=== PATIENT | female | born 1970 | race Caucasian/White ===

== ENCOUNTER 2024-05-15 11:41 | Outpatient (CLI) | payer OTHER, SELFPAY ==
[2024-05-15 12:14] LABS: Hematocrit 42.3 % (37.0-47.0); Hemoglobin 13.5 g/dL (12.0-15.0)
--- OUTSIDE RECORDS SUMMARY | 2024-05-15 13:23 | XMS_ITS | Encounter Summary ---
Author Organization [facility] Address [facility] [place] [address] Care Team Providers Care Foundation Assistant Name Role Phone Kristen Xiong NP Primary Care Provider [phone] Encounter Details Date Type Department Care Team (Late Contact Info) Description 02/18/2022 Orders Only [facility] Medical [facility] Family Medicine [address] [place] [phone] Kristen Xiong NP [address] [place] [address] Social History Tobacco Use Types Packs/Day Years Used Date Smoking Tobacco: Never Smokeless Tobacco: Never Alcohol Use Standard Drinks/Week Comments No 0 (1 standard drink = 0.6 oz pur e alcohol) rarely Comments No Sex and Gender Information Value Date Recorded Sex Assigned at Not on file Legal Sex Female 9:26 PM CDT Gender Identity Female 01/14/2021 8:12 AM SOCIAL SECRETARY Sexual Orientation Not on file documented as of this encounter Plan of Treatment Upcoming Encounters Date Type Department Care Team (Late Contact Info) Description 06/06/2024 3:30 PM CDT Appointment [facility] Breast Center [facility] [address] [address] documented as of this encounter Visit Diagnoses Not on filedocumented in this encounter Care Teams Foundation Assistant Relationship Specialty Start Date End Date Kristen Xiogn NP [address] [place] [address] PCP - General Nurse Practitioner 05/11/22 documented as of this encounter
--- OUTSIDE RECORDS SUMMARY | 2024-05-15 13:23 | XMS_ITS | Encounter Summary ---
Author Organization [facility] Address [address] [place] [address] Care Team Providers Care Hospital Educator Name Role Phone Kristen Xiong NP Primary Care Provider [phone] Encounter Details Date Type Department Care Team (Late Contact Info) Description 12/14/2016 Orders Only [facility] [address] [place] [phone] Nadia Welch, CANVASS MANAGER [address] [place], [place] [id number] Social History Tobacco Use Types Packs/Day Years Used Date Smoking Tobacco: Never Smokeless Tobacco: Never Alcohol Use Standard Drinks/Week Comments No 0 (1 standard drink = 0.6 oz pur e alcohol) rarely Comments Unknown Sex and Gender Information Value Date Recorded Sex Assigned at Not on file Legal Sex Female 9:26 PM CDT Gender Identity Female 01/14/2021 8:12 AM HOSPICE LIAISON Sexual Orientation Not on file documented as of this encounter Plan of Treatment Upcoming Encounters Date Type Department Care Team (Late Contact Info) Description 06/06/2024 3:30 PM CDT Appointment [facility] Breast Center [facility] [address] [facility] [address] [address] documented as of this encounter Visit Diagnoses Not on filedocumented in this encounter Additional Health Concerns Infection Onset Date Last Indicated Resolved Time PreProcedure Screening COVID-19 08/24/2020 1 08/25/2020 12:34 PM CDT PreProcedure Screening COVID-19 03/30/2021 2 03/30/2021 2:57 PM HOSPICE LIAISON documented as of this encounter Care Teams Hospital Educator Relationship Specialty Start Date End Date Kristen Xiong NP [address] [place] [address] PCP - General Nurse Practitioner 05/11/22 documented as of this encounter
--- OUTSIDE RECORDS SUMMARY | 2024-05-15 13:23 | XMS_ITS | Encounter Summary ---
Author Organization [facility] Address [facility] [place] [address] Care Team Providers Care Interior Design Principal Name Role Phone Kristen hughes EUGENIA Primary Care Provider [phone] Encounter Details Date Type Department Care Team (Late Contact Info) Description 12/05/2023 Orders Only [address] [phone] Mindy Pinon RN Social History Tobacco Use Types Packs/Day Years Used Date Smoking Tobacco: Never Smokeless Tobacco: Never Alcohol Use Standard Drinks/Week Comments No 0 (1 standard drink = 0.6 oz pur e alcohol) rarely AUDIT-C Answer Date Recorded Q1: How often do you have a drink containing alc ohol? Never 08/24/2022 Average Number of Drinks Not on file 023 Frequency of Binge Drinking Not on file 08/06 PHQ-2 Answer Date Recorded Patient Health Questionnaire-2 Score 0 09/08/2023 Comments No Sex and Gender Information Value Date Recorded Sex Assigned at Not on file Legal Sex Female 9:26 PM CDT Gender Identity Female 01/14/2021 8:12 AM FUEL PILOT ENGINEER Sexual Orientation Not on file documented as of this encounter Plan of Treatment Upcoming Encounters Date Type Department Care Team (Late Contact Info) Description 06/06/2024 3:30 PM CDT Appointment [facility] [address] [phone] documented as of this encounter Visit Diagnoses Not on filedocumented in this encounter Care Teams Interior Design Principal Relationship Specialty Start Date End Date Kristen Xiong NP [address] [place] [address] PCP - General Nurse Practitioner 05/11/22 documented as of this encounter
--- OUTSIDE RECORDS SUMMARY | 2024-05-15 13:23 | XMS_ITS | Encounter Summary ---
Author Organization [facility] Address [address] [place] [address] Care Team Providers Care Federal Appellate Law Clerk Name Role Phone January hughesfany EUGENIA Primary Care Provider [phone] Encounter Details Date Type Department Care Team ([facility] Contact Info) Description 08/31/2016 Orders Only [facility] Family Medicine [address] [place] [address] Bob Hu, RENALDO Social History Tobacco Use Types Packs/Day Years Used Date Smoking Tobacco: Never Smokeless Tobacco: Never Alcohol Use Standard Drinks/Week Comments No 0 (1 standard drink = 0.6 oz pur e alcohol) rarely Comments Unknown Sex and Gender Information Value Date Recorded Sex Assigned at Not on file Legal Sex Female 9:26 PM CDT Gender Identity Female 01/14/2021 8:12 AM ARCHITECT IN TRAINING Sexual Orientation Not on file documented as of this encounter Plan of Treatment Upcoming Encounters Date Type Department Care Team ([facility] Contact Info) Description 06/06/2024 3:30 PM CDT Appointment [facility] Breast Center [facility] [address] [address] documented as of this encounter Visit Diagnoses Not on filedocumented in this encounter Additional Health Concerns Infection Onset Date Last Indicated Resolved Time PreProcedure Screening COVID-19 08/24/2020 08/25/2020 12:34 PM CDT PreProcedure Screening COVID-19 03/30/2021 2 03/30/2021 2:57 PM ARCHITECT IN TRAINING documented as of this encounter Care Teams Federal Appellate Law Clerk Relationship Specialty Start Date End Date Kristen Xiong NP [address] [place] [address] PCP - General Nurse Practitioner 05/11/22 documented as of this encounter
--- OUTSIDE RECORDS SUMMARY | 2024-05-15 13:23 | XMS_ITS | Clinical Summary ---
Author Organization [facility] Address [facility] [place] [address] Care Team Providers Care Card Grader Name Role Phone Tyrese Kristen EUGENIA Primary Care Provider [phone] Allergies Active Allergy Reactions Criticality Noted Date Comments Adhesive Hives High 09/06/2021 Paper tape- took skin off rash/itching Bee Sting Kit Anaphylaxis High 12/07/2021 Bee Venom Protein (Honey Bee) - Codeine Other (see comments) High 01/05/2014 Other reaction(s): Unknown Tongue swells, can't breath-ended up in ICU - Fish Containing Products High 02/25/2014 Other reaction(s): ANAPHYLACTIC - Fish,Bora,Flax Oils-Om3,6,9no1 Anaphylaxis High 12/07/2021 Morphine High 01/05/2014 Other reaction(s): Unknown Other reaction(s): TROUBLE BREATHING-ended up in ICU - Penicillins Anaphylaxis High 01/05/2014 Other reaction(s): Unknown Other reaction(s): TONGUE AND THROAT SWELLS - Phentermine Palpitations Medium 09/08/2023 Prochlorperazine Edisylate Hives Medium 01/05/2014 Other reaction(s): Unknown compazine Shellfish Derived Shortness of breath High 0 Tongue swells, has to have epi Told to avoid IV dye Bupropion Hcl Itching,Palpitations Medium 09/08/2023 Medications EPINEPHrine (EPIPEN) 0.3 mg/0.3 mL injection syringe inject (0.3MG) by intramuscular route once as needed for anaphylaxis 08/15/19 12 Active jqqbnwww-fhke-ON -calcium-mins (THERAGRAN M) 9 mg iron-400 mcg tablet Take 1 tablet by mouth daily Active acetaminophen (TYLENOL) 500 mg tablet Pt is to take 2 tabs po every 6 hours for basal pain 04/14/19 21 Active biotin 10 mg tablet Take 10 mg by mouth daily 04/22/19 21 Active apple cider vinegar 300 mg tablet Take 300 mg by mouth daily 04/22/19 21 Active Lacto.acidophilu s-Bif.animalis 32 billion cell capsule Take 1 capsule by mouth daily 04/14/19 21 Active traZODone (DESYREL) 50 mg tabletIndication s:Insomnia, unspecified type Take 1 tablet (50 mg total) by mouth nightly as needed for sleep 90 tablet 1 07/07/19 23 Active cyanocobalamin, vitamin B-12, (VITAMIN B-12 INJ) Inject 1,000 mcg into a large muscle every 30 (thirty) days Active omeprazole (PriLOSEC) 20 mg capsuleIndicatio ns:Gastroesophag eal reflux disease, unspecified whether esophagitis present Take 1 capsule (20 mg total) by mouth daily as needed (acid reflux) 90 capsule 3 10/13/19 23 Active meloxicam (MOBIC) 15 mg tabletIndication s:Muscular aches Take 1 tablet (15 mg total) by mouth daily 90 tablet 3 10/13/19 23 Active ergocalciferol (VITAMIN D2) 1,250 mcg (50,000 unit) capsuleIndicatio ns:Vitamin D deficiency Take 1 capsule (50,000 Units total) by mouth once a week 12 capsule 3 10/18/19 23 Active methocarbamoL (ROBAXIN) 500 mg tabletIndication s:Sciatica, right side Take 1 tablet (500 mg total) by mouth 3 (three) times a day as needed for muscle spasms 30 tablet 1 11/02/19 23 Active azithromycin (ZITHROMAX) 250 mg tabletIndication s:Otitis media, unspecified laterality, unspecified otitis media type Take 1 tablet (250 mg total) by mouth See admin instructions 2 tablets today, then 1 daily x 4 days. 6 tablet 1 01/09/20 23 Active phenazopyridine (Pyridium) 200 mg tabletIndication s:Acute cystitis without hematuria Take 1 tablet (200 mg total) by mouth 3 (three) times a day as needed for urinary tract pain 10 tablet 06/22/19 24 Active furosemide (LASIX) 20 mg tabletIndication s:Bilateral lower extremity edema Take 1 tablet (20 mg total) by mouth 2 (two) times a day 180 tablet 3 08/09/19 24 025 Active ferrous sulfate 220 mg (44 mg iron)/5 mL solutionIndicati ons:Iron deficiency anemia, unspecified iron deficiency anemia type Take 5 mL (220 mg total) by mouth daily 150 mL 11 10/03/19 24 Active tirzepatide, weight loss, (ZEPBOUND) 2.5 mg/0.5 mL Pen InjectionIndicat ions:weight loss management for obese patient (bmi >= 30),phentermine causes palpitations, wellbutrin causes itching and a rash Inject 2.5 mg under the skin every 7 days Indications: weight loss management for an obese person, phentermine causes palpitations, wellbutrin causes itching and a rash Administer one pre-filled single-dose pen subcutaneously every 7 days. 4 each 1 12/06/19 24 Active Tirosint 100 mcg capsuleIndicatio ns:hypothyroidis m,patient has tried 3 treatment alternatives and failed, continued to have elevated TSH and low T3 levels. She has tried synthroid (brand name) armour thyroid, levothyroxine, Euthyrox. Take 1 capsule (100 mcg total) by mouth daily Indications: a condition with low thyroid hormone levels, patient has tried 3 treatment alternatives and failed, continued to have elevated TSH and low T3 levels. She has tried synthroid (brand name) armour thyroid, levothyroxine, Euthyrox. 30 capsule 11 12/08/19 24 Active suvorexant 20 mg tabletIndication s:insomnia,has tried ambien, lunesta, trazadone, ambien (had side effects), Take 20 mg by mouth nightly as needed (insomnia) Indications: difficulty sleeping, has tried ambien, lunesta, trazadone, ambien (had side effects), 30 tablet 3 12/08/19 24 Active venlafaxine XR (Effexor XR) 37.5 mg 24 hr capsuleIndicatio ns:Anxiety and depression Take 1 capsule (37.5 mg total) by mouth daily 90 capsule 1 12/08/19 24 Active doxepin (SINEquan) 10 mg capsuleIndicatio ns:Primary insomnia Take 1 capsule (10 mg total) by mouth nightly 30 capsule 1 12/15/19 24 Active azithromycin (ZITHROMAX) 250 mg tabletIndication s:Acute non-recurrent maxillary sinusitis Take 1 tablet (250 mg total) by mouth See admin instructions 2 tablets today, then 1 daily x 4 days. 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 Overweight with body mass index (BMI) 25.0-29.9 01/09/2020 Perimenopausal disorder 01/09/2020 S/P laparoscopic sleeve gastrectomy 10/16/2019 Esophageal dysphagia 10/16/2019 Gastroesophageal reflux disease 10/16/2019 Thiamine deficiency 10/16/2017 Epigastric pain 07/07/2017 Overview (07/07/2017): Added automatically from request for surgery [id number] Vitamin D deficiency 12/13/2012 Esophageal reflux 10/31/2012 Iron deficiency anemia 10/17/2012 Hypoglycemia 02/06/2010 Hypopotassemia 02/06/2010 Hypothyroidism History of blood transfusion Overview (09/01/2016): x 4 d/t anemia Anemia Resolved Problems Problem Noted Date Diagnosed Date Resolved Date Hyperlipidemia 03/18/2021 05/18/2021 Hiatal hernia 10/16/2019 05/18/2021 Palpitations 02/06/2010 05/18/2021 Encounters Date Type Department Care Team Description 03/20/2024 Telephone [facility] Medical Group Family Medicine [address] [place] [address] Kristen Xiong NP from Last 3 Months Immunizations Name Administration Dates Next Due Influenza (IM) Quad PF 01/20/2014 Tdap 03/17/2008 Family History Medical History Relation Comments Diabetes Father Hypertension Father Stroke Father Heart disease Mother bypass x 4 Hypertension Mother Hypothyroidism Mother Other Mother arteriosclosis Rheum arthritis Mother Diabetes Paternal Grandmother Kidney failure Paternal Grandmother Ovarian cancer Paternal Grandmother Relation Status Comments Father Mother Paternal Grandmother Social History Tobacco Use Types Packs/Day Years [...] CDT Gender Identity Female 01/14/2021 8:12 AM QUANTITATIVE CONSULTANT Sexual Orientation Not on file Last Filed Vital Signs Vital Sign Reading Time Taken Comments Blood Pressure 107/68 12/27/2023 11:30 AM QUANTITATIVE CONSULTANT Pulse 78 12/27/2023 11:30 AM QUANTITATIVE CONSULTANT Temperature 36.7 C (98.1 F) 12/27/2023 8:26 AM QUANTITATIVE CONSULTANT Respiratory Rate 18 12/27/2023 11:30 AM QUANTITATIVE CONSULTANT Oxygen Saturation 100% 12/27/2023 11:30 AM QUANTITATIVE CONSULTANT Inhaled Oxygen Concentration - - Weight 79.4 kg (175 lb) 09/08/2023 12:48 PM CDT Height 157.5 cm (5' 2 ) 09/08/2023 12:48 PM CDT Body Mass Index 32.01 09/08/2023 12:48 PM CDT Plan of Treatment Upcoming Encounters Date Type Department Care Team (Late st Contact Info) Description 06/06/2024 3:30 PM CDT Appointment [facility] [address] [address] Health Maintenance Due Date Last Done Comments CT Colonography 1968 FIT-DNA 1968 FIT 1968 FOBT 1968 Sigmoidoscopy 1968 DTaP,Tdap,and Td Vaccines (2 - Td or Tdap) 04/14/2008 03/17/2008 Zoster Series Vaccines (1 of 2) 2018 Mammogram 09/24/2023 09/23/2022, 02/07, 03/03/2020, Additional history exists Influenza Vaccine (Season Ended) 2024 01/20/2014 Colonoscopy 07/15/2031 07/14/2021 Colorectal Cancer Screening 07/15/2031 RSV Vaccines and 60 Years or Older (1 - 1-dose 75+ series) 12/02/2043 AMB Pneumococcal 0-64 yrs Aged Out No longer eligible based on patient's age to complete this topic COVID-19 Vaccine Discontinued HIB Vaccines Aged Out No longer eligi ble based on patient's age to complete this topic HPV Vaccines Aged Out No longer eligi ble based on patient's age to complete this topic Hepatitis A Vaccines Aged Out No long er eligible based on patient's age to complete this topic Hepatitis B Vaccines Discontinued IPV Vaccines Aged Out No longer eligi ble based on patient's age to complete this topic MMR Vaccines Discontinued Meningococcal ACWY Vaccine Aged Out N o longer eligible based on patient's age to complete this topic Meningococcal B Vaccine Aged Out No l onger eligible based on patient's age to complete this topic Pap Smear Discontinued RSV Vaccines <20 Months Aged Out No l onger eligible based on patient's age to complete this topic Varicella Vaccines Discontinued Medical Devices Implanted Type Area Prune Washer Device Identifier Shelf Expiration Date Model / Serial / Lot Breast Breast Natrelle Inspira Softtouch Breast Implant Smooth Round Extra-Full Profile Implanted:Qty: 1 on 04/01/2021 by Josette Gtz MD at [facility] PLASTIC SURGERY OR Breast Right: Breast [employer] 07/28/2024 SSX / [id number] / [id number] Natrelle Inspira Softtouch Breast Implant Smooth Round Extra-Full Profile Implanted:Qty: 1 on 04/01/2021 by Josette Gtz MD at [facility]ERY OR Breast Left: Breast [employer] 05/30/2023 SSX / [id number] / [id number] Procedures Procedure Name Priority Date/Time Associated Diagnosis Comments BI SCREENING BILATERAL Routine 09/23/2022 2:07 PM CDT Screening mammogram for high-risk patient from Last 3 Months or Most Recently Relevant to Health Maintenance Results * Bilateral digital screening mammogram (09/23/2022 2:07 PM CDT) Anatomical Region Laterality Modality Breast Bilateral Mammography Narrative 09/23/2022 2:12 PM CDT EXAMINATION(S) PERFORMED Patient is seen for Bilateral digital screening mammogram. Study was evaluated with a computer aided detection (CAD) system. INDICATIONS Miryam Jason is a 51 y.o. female and is being seen for Screening mammogram for high-risk patient. No known family history of breast cancer. COMPARISON TO PREVIOUS EXAMINATION(S) Compared to: 03/04/2021 Bilateral digital screening mammogram and 03/03/2020 Bilateral digital screening mammogram FINDINGS The breasts are heterogeneously dense, which may obscure small masses. The patient has bilateral subpectoral silicone breast implants. The patient has right breast implants. The patient has left breast implants. There are stable benign calcifications. There has been no interval change. Right There is no evidence of suspicious masses, calcifications, or other abnormal findings in the right breast. There is a benign medial breast mass. Left There is no evidence of suspicious masses, calcifications, or other abnormal findings in the left breast. IMPRESSION Right breast assessment: Benign. Left breast assessment: Benign. Routine Screening Mammogram in 1 Yr is recommended for both breasts. Overall BI-RADS category: 2 - Benign Kristen Xiong NP IM BI PROCEDURES Final Resul t from Last 3 Months or Most Recently Relevant to Health Maintenance Insurance [employer] ([facility] Advance Directives For more information, please contact: [phone] * Full Code (Latest Code Status on File) Date Activated Date Inactivated Comments 05/11/2022 11:18 AM 05/11/2022 6:47 PM * Full Code Date Activated Date Inactivated Comments 07/18/2017 8:22 AM 07/18/2017 3:07 PM Care Teams Card Grader Relationship Specialty Start Date End Date Kristen Xiong NP [address] [place] [address] PCP - General Nurse Practitioner 05/11/22
--- OUTSIDE RECORDS SUMMARY | 2024-05-15 13:23 | XMS_ITS | Encounter Summary ---
Author Organization [facility] Address [address] [place] [address] Care Team Providers Care Workers Compensation Claims Examiner Name Role Phone Kristen Xiong NP Primary Care Provider Encounter Details Date Type Department Care Team (Late Contact Info) Description 05/04/2023 Orders Only [facility] Medical Group Family Medicine [address] [place] [phone] Kristen Xiong NP [address] [place] [address] Primary insomnia Social History Tobacco Use Types Packs/Day Years [...] of Binge Drinking Not on file 08/06 Comments No Sex and Gender Information Value Date Recorded Sex Assigned at Not on file Legal Sex Female 9:26 PM CDT Gender Identity Female 01/14/2021 8:12 AM TEST ENGINEERING INTERN Sexual Orientation Not on file documented as of this encounter Plan of Treatment Upcoming Encounters Date Type Department Care Team (Late Contact Info) Description 06/06/2024 3:30 PM CDT [facility] [address] [phone] documented as of this encounter Visit Diagnoses Diagnosis Primary insomnia Persistent disorder of initiating or maintaining sleep documented in this encounter Care Teams Workers Compensation Claims Examiner Relationship Specialty Start Date End Date Kristen Xiong NP [address] [place] [address] PCP - General Nurse Practitioner 05/11/22 documented as of this encounter
--- OUTSIDE RECORDS SUMMARY | 2024-05-15 13:23 | XMS_ITS | Encounter Summary ---
Author Organization [facility] Address [address] [place] [address] Care Team Providers Care Lead Project Manager Name Role Phone Tyrese Kristen BELLO Primary Care Provider [phone] Encounter Details Date Type Department Care Team (Late st Contact Info) Description 03/14/2022 Prep for Case [facility] Medical Group Plastic and Reconstructive Surgery [address] [place] [phone] Josette Gtz MD [address] [place] [address] Fat necrosis (Primary Dx); Painful scar Social History Tobacco Use Types Packs/Day Years Used Date Smoking Tobacco: Never Smokeless Tobacco: Never Alcohol Use Standard Drinks/Week Comments No 0 (1 standard drink = 0.6 oz pur e alcohol) rarely Comments No Sex and Gender Information Value Date Recorded Sex Assigned at Not on file Legal Sex Female 9:26 PM CDT Gender Identity Female 01/14/2021 8:12 AM CERTIFIED REAL ESTATE APPRAISER Sexual Orientation Not on file documented as of this encounter Plan of Treatment Upcoming Encounters Date Type Department Care Team (Late st Contact Info) Description 06/06/2024 3:30 PM CDT Appointment [facility] Breast Center [facility] [address] 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
--- OUTSIDE RECORDS SUMMARY | 2024-05-15 13:23 | XMS_ITS | Continuity of Care Document ---
Author Organization [employer] [facility] Address [address] [place] [address] Phone Care Team Providers Care Grand Jury Deputy Sheriff Name Role Phone Portia Muñiz NP Unavailable Unavailable Allergies, Adverse Reactions, Alerts Substance Reaction Status Criticality morphine Active No Information codeine Active No Information shellfish derived Active High BEE STING KIT Active No Information Penicillins Active No Information Medications Medication Instructions Dosage Effective Dates (start - stop) Status Comments Trulicity 0.75 mg/0.5 mL subcutaneous pen injector inject (0.75MG) by subcutaneous route every 7 DAYS - Active spironolactone 50 mg tablet take 1 tablet by oral route every day 50 MG - Active [place] Thyroid 120 mg tablet take 1 Tablet by Oral route every day MON THRU Monday - Active iron 325 mg (65 mg iron) tablet take 1 by Oral route 3 times every day with 500mg Vitamin C 1 - Active omeprazole 40 mg capsule,delayed release take 1 capsule by oral route every day before a meal 40 MG - Active Procedures Procedure Date MED LIST DOCD IN [facility] OFFICE/OUTPATIENT VISIT, NEW Advance Directives Directive Yes / No Effective Date File Name No Information Encounters Encounter Description Practice Location Reason(s) For Visit Diagnoses Date Provider Providers Copied on Encounter [employer] [facility], [address], [place], [place], [id number], [place] tel:[phone] [facility] No Information Antonino Pearce. [address] [place], [address], [place]. tel:[phone] [facility], [address], [place], [place], [id number], tel:[phone] [facility] No Information 0 2 Antonino Pearce. [address] [place], [address], . tel:[phone] OFFICE/OUTPA TIENT VISIT, [facility], [address], [place], [place], [id number], tel:[phone] [facility] establish care (chief complaint) hypothyroi dism (chief complaint) thyroid problems (chief complaint) Body mass index (BMI) 26.0-26.9, adultHypothyroidism due to Leo's thyroiditisAutoimmun e thyroiditisOther iron deficiency anemiaHyperglycemiaH ypoglycemiaInsulin resistanceLow vitamin B12 levelVitamin D deficiencyHistory of gastric bypass 2 Antonino Pearce. [address] [place], [address], . [phone] Referring Provider: Portia White, [address] [place], [address]. tel:[phone] Family History Family Member Type Diagnosis Age At Onset Problem Family history of Cardiovasc ular disease Problem Family history of Thyroid di sorder Problem Family history of Diabetes cristal reyes Payers Payer name Insurance type Covered republican ID Popeye bacalesvia(s) [facility] [id number] Social History Type Description Quantity Date Captured Comments Sex Female Smoking Status No Information Chief Complaint And Reason For Visit No Information Reason For Referral Reason For Referral No Information Plan Of Treatment Date Type Action Status Goal Lifestyle education regardin g diet completed Future Order: Lab Order COMPREHE NSIVE METABOLIC PANEL ([id number]), Ordered on: Ordered Future Order: Lab Order CBC (INC LUDES DIFF/PLT) ([id number]), Ordered on: Ordered Future Order: Lab Order VITAMIN D,25-OH,TOTAL,IA ([id number]), Ordered on: Ordered Future Order: Lab Order VITAMIN B12 ([id number]), Ordered on: Ordered Future Order: Lab Order T4, FREE (866), O rdered on: Ordered Future Order: Lab Order T3, FREE ([id number]), Ordered on: Ordered Future Order: Lab Order TSH, 3RD GENERATION (089), Ordered on: Ordered Future Order: Lab Order HEMOGLOB IN A1C (496), Ordered on: Ordered Future Order: Lab Order IRON, TI BC AND FERRITIN PANEL ([id number]), Ordered on: Ordered Future Order: Lab Order THYROID PEROXIDASE AND THYROGLOBULIN ANTIBODIES ([id number]), Ordered on: Ordered History Of Present Illness Encounter Date Complaint History Of Prese nt Illness establish care hypothyroidism thyroid problems Presenting symp toms include fatigue, hoarseness, increased perspiration, insomnia, intolerance to cold, muscle weakness, skin and nail changes, weight gain and HX OF ENLARGED THYROIID. Presenting symptoms do not include atrial fibrillation, dysphagia, enlarged thyroid, exophthalmus, intolerance to heat, irregular menses, nervousness, rapid heart beat, tremor, weight loss, hard mass and OCC HOARSE. Risk factors include age and female. Additional information: PT DX AFTER SON BORN 20 YRS PIRIOR ALONG W/INSULIN RESISTENCE; ON ARMOUR THYROID 120MG ; ON OZEMPIC AND DEXCOM ; WAS HAVING SEVERE LOW BG ; HX GASTRIC SLEEVE THEN HAD REVISION 2019 WITH FEPARI OF 2 HIIATLA HERNIAS; HX ANXIETY WHEN TOOK SYNTHROID. Functional Status Date Functional Assessmen t No Information Instructions Date Instruction Additional Infor mation Lifestyle education regarding di et Related to Body mass index (BMI) 26.0-26.9, adult Assessments Type Assessment Date No Information Patient Care Teams Name Effective Dates (start - stop) Status Members No Information
--- OUTSIDE RECORDS SUMMARY | 2024-05-15 13:23 | XMS_ITS | Encounter Summary ---
Author Organization [facility] Address [address] [place] [address] Care Team Providers Care Watch Engineer Name Role Phone Tyrese Kristen BELLO Primary Care Provider [phone] Encounter Details Date Type Department Care Team (Late Contact Info) Description 12/22/2016 Orders Only [facility] [address] [place] [phone] Teresa Lui CMA Status post bariatric surgery (Primary Dx); Thiamin deficiency; Other iron deficiency anemia; Chronic fatigue, unspecified Social History Tobacco Use Types Packs/Day Years Used Date Smoking Tobacco: Never Smokeless Tobacco: Never Alcohol Use Standard Drinks/Week Comments No 0 (1 standard drink = 0.6 oz pur e alcohol) rarely Comments Unknown Sex and Gender Information Value Date Recorded Sex Assigned at Not on file Legal Sex Female 9:26 PM CDT Gender Identity Female 01/14/2021 8:12 AM SHANK MAKER Sexual Orientation Not on file documented as of this encounter Plan of Treatment Upcoming Encounters Date Type Department Care Team (Late Contact Info) Description 06/06/2024 3:30 PM CDT Appointment [facility] Breast Center [facility] [address] [facility] [address] [address] Scheduled Orders Name Type Priority Associated Diagnoses Orde r Schedule CBC and Differential Lab Routine Thiamin deficiency Other iron deficiency anemia Chronic fatigue, unspecified Status post bariatric surgery 1 Occurrences starting 12/22/2016 until 12/22/2017 Iron Lab Routine Thiamin deficiency Other iron deficiency anemia Chronic fatigue, unspecified Status post bariatric surgery 1 Occurrences starting 12/22/2016 until 06/24/2017 Total Iron Binding Capacity Lab Routine Thiamin deficiency Other iron deficiency anemia Chronic fatigue, unspecified Status post bariatric surgery 1 Occurrences starting 12/22/2016 until 12/22/2017 Vitamin B1, Whole Blood Lab Routine Thiamin deficiency Other iron deficiency anemia Chronic fatigue, unspecified Status post bariatric surgery 1 Occurrences starting 12/22/2016 until 06/24/2017 CBC Automated Lab Routine Thiamin deficiency Other iron deficiency anemia Chronic fatigue, unspecified Status post bariatric surgery Ordered: 12/22/2016 documented as of this encounter Visit Diagnoses Diagnosis Status post bariatric surgery- Primary Bariatric surgery status Thiamin deficiency Other and unspecified manifestations of thiamine deficiency Other iron deficiency anemia Chronic fatigue, unspecified documented in this encounter Additional Health Concerns Infection Onset Date Last Indicated Resolved Time PreProcedure Screening COVID-19 08/24/2020 1 08/25/2020 12:34 PM CDT PreProcedure Screening COVID-19 03/30/2021 2 03/30/2021 2:57 PM SHANK MAKER documented as of this encounter Care Teams Watch Engineer Relationship Specialty Start Date End Date Kristen Xiong NP [address] [place] [address] [id number] PCP - General Nurse Practitioner 05/11/22 documented as of this encounter
--- OUTSIDE RECORDS SUMMARY | 2024-05-15 13:23 | XMS_ITS | Encounter Summary ---
Author Organization [facility] Address [address] [place] [address] Care Team Providers Care Direct Marketing Executive Name Role Phone Kristen Xiong NP Primary Care Provider [phone] Encounter Details Date Type Department Care Team (Late Contact Info) Description 03/14/2022 Prep for Case [facility] Medical Group Plastic and Reconstructive Surgery [address] [place] [phone] Josette Gtz MD [address] [place] [address] Social History Tobacco Use Types Packs/Day Years Used Date Smoking Tobacco: Never Smokeless Tobacco: Never Alcohol Use Standard Drinks/Week Comments No 0 (1 standard drink = 0.6 oz pur e alcohol) rarely Comments No Sex and Gender Information Value Date Recorded Sex Assigned at Not on file Legal Sex Female 9:26 PM CDT Gender Identity Female 01/14/2021 8:12 AM OSTOMY RN Sexual Orientation Not on file documented as of this encounter Plan of Treatment Upcoming Encounters Date Type Department Care Team (Late Contact Info) Description 06/06/2024 3:30 PM CDT Appointment [facility] Breast Center [facility] [address] [address] documented as of this encounter Visit Diagnoses Not on filedocumented in this encounter Care Teams Direct Marketing Executive Relationship Specialty Start Date End Date Kristen Xiong NP [address] [place] [address] PCP - General Nurse Practitioner 05/11/22 documented as of this encounter
--- OUTSIDE RECORDS SUMMARY | 2024-05-15 13:23 | XMS_ITS | Continuity of Care Document ---
Author Organization [facility] Address [address] [place] [address] Phone Care Team Providers Care Contact Lens Assistant Name Role Phone Prosper Howard PA-C Unavailable Unavailable Allergies, Adverse Reactions, Alerts Substance Reaction Status Criticality BEE STING KIT Active No Information Penicillins Active No Information morphine Active No Information codeine Active No Information Medications Medication Instructions Dosage Effective Dates (start - stop) Status Comments Gibson Thyroid 90 mg tablet take 1 tablet by oral route every day 90 MG - Active iron 18 mg tablet - Active Procedures Procedure Date Knee Xray 3 Views Office/outpatient visit,est, mod 2019 Knee Xray 3 Views Office/outpatient visit,est, mod 2018 Office/outpatient visit,new, mod 2017 Advance Directives Directive Yes / No Effective Date File Name No Information Encounters Encounter Description Practice Location Reason(s) For Visit Diagnoses Date Provider Providers Copied on Encounter Office/outpat ient visit,est, mod [facility], [address] [place] [address], [id number], tel:[phone] [facility] knee (chief complaint) Pain in right kneeUnilateral primary osteoarthritis, right knee 0 Lee Cheng. [address] [place] [address], [id number] , . tel:[phone] Referring Provider: Tracy Lal, [address], [place], [address] . tel:[phone] Office[facility]pat [facility], [facility], [address] [place] [address], [id number], tel:[phone] [facility] knee (chief complaint) Pain in right kneePrimary osteoarthritis of right knee 9 Matteo Boggs. [address] [place] [address], [id number] , . tel:[phone] Referring Provider: Tracy Lal, [address], [place], [address] . tel:[phone] Office/outpat ient visit,[facility], [facility], [address] [place] [address], [id number], tel:[phone] [facility] ankle (chief complaint) knee (chief complaint) Sprain of left ankle, unspecified ligament, initial encounterAcute left ankle painPrimary osteoarthritis of both knees 8 Vijay Lin. [address] [place] [address], [id number] , . tel:[phone] Referring Provider: Tracy Lal, [address], [place], [address] . tel:[phone] Family History Family Member Type Diagnosis Age At Onset Problem (finding) Family history of Cardi ovascular disease Problem (finding) Family history of Diabe yoan mellitus Immunizations Vaccine Date Status Comments Pneumo (2 yrs or older)(PPV) administered Source: Other Provider Flu (split) (3 yrs or older) administered Source: Other Provider Payers Payer name Insurance type Covered green party ID Authorbreea usman(s) [employer] 20 [id number] Social History Type Description Quantity Date Captured Comments Alcohol Use Details Unknown Caffeine Use Details Unknown Tobacco Use Status Current non-smoker 20 Smoking Status Never smoker Non-Smoking Tobacco Use Details : No Details Available : No Details Available Sex Female Vital Signs Date / Time: Height Weight BMI Pulse Rate Blood Pressure Temperature Respiratory Rate Body Surface Area Head Circumference Head Circ. Percentile Wt./Ramon. Percentile BMI percentile Pulse Ox Inhaled Ox 1:34 PM 62.00 in 65.771 kg (145.00 lbs) 26.5 2 kg/m eter (2) 75 /min 117/75 mm[Hg] 97.60 F Chief Complaint And Reason For Visit From encounter dated '07/12/2019 13:00'. knee (chief complaint) Reason For Referral Reason For Referral No Information Plan Of Treatment Date Type Action Status Future Order: Radiology Order Kn ee Xray 3 Views ([id number]), Ordered on: Ordered Future Order: Radiology Order Kn ee Xray 1 Or 2 Views ([id number]), Ordered on: Ordered Future Order: Radiology Order Kn ee Xray Both Knees Standing AP ([id number]), Ordered on: Ordered History Of Present Illness Encounter Date Complaint History Of Prese nt Illness knee knee ankle knee Functional Status Date Functional Assessmen t No Information Instructions Date Instruction Additional Infor mation No Information Assessments Type Assessment Date assessment Pain in right knee assessment Unilateral primary osteoarthriti s, right knee Patient Care Teams Name Effective Dates (start - stop) Status Members No Information
--- OUTSIDE RECORDS SUMMARY | 2024-05-15 13:24 | XMS_ITS | Encounter Summary ---
Author Organization [facility] Address [address] [place] [address] Care Team Providers Care Cutter And Edge Trimmer Name Role Phone Kristen Xiong NP Primary Care Provider Encounter Details Date Type Department Care Team (Late Contact Info) Description 10/26/2017 Orders Only [facility] Weight Loss Center [address] [place] [address] Nadia Welch, BUS GIRL [address] [place], [place] [address] Social History Tobacco Use Types Packs/Day Years Used Date Smoking Tobacco: Never Smokeless Tobacco: Never Alcohol Use Standard Drinks/Week Comments No 0 (1 standard drink = 0.6 oz pur e alcohol) rarely Comments Unknown Sex and Gender Information Value Date Recorded Sex Assigned at Not on file Legal Sex Female 9:26 PM CDT Gender Identity Female 01/14/2021 8:12 AM RADIO REPAIR TEACHER Sexual Orientation Not on file documented as of this encounter Plan of Treatment Upcoming Encounters Date Type Department Care Team (Late Contact Info) Description 06/06/2024 3:30 PM CDT Appointment [facility] Breast Center [facility] [address] [facility] [address] [address] documented as of this encounter Visit Diagnoses Not on filedocumented in this encounter Additional Health Concerns Infection Onset Date Last Indicated Resolved Time PreProcedure Screening COVID-19 08/24/2020 1 08/25/2020 12:34 PM CDT PreProcedure Screening COVID-19 03/30/2021 2 03/30/2021 2:57 PM RADIO REPAIR TEACHER documented as of this encounter Care Teams Cutter And Edge Trimmer Relationship Specialty Start Date End Date Kristen Xiong NP [address] [place] [address] PCP - General Nurse Practitioner 05/11/22 documented as of this encounter
== END 2024-05-15 11:42 | disposition home or self-care (01) ==
LOC: ANHLAB 11:46
PROVIDERS: Visit Provider Anesthesiology
DX: D64.9 Anemia, unspecified (principal)
CPT/HCPCS: 36415; 85014; 85018

== ENCOUNTER 2024-05-23 00:28 | Day surgery (SDC) | payer OTHER, SELFPAY ==
[2024-05-13 10:03] VITALS: BMI 23.1
--- NOTE | 2024-05-13 10:10 | PC.NURSE ---
Report to the Outpatient Waiting Room, entrance under the green pavilion located off [facility], at time _1000_ on date _[id number]_. Planned Procedure Time: _1200_.? Time changes happen often and if your time is changed the preop area will call you the afternoon before. - You and your visitor will be asked to self-screen and do not enter if you have any COVID symptoms. Please call surgeon if you need to reschedule. - A mask is optional within the hospital at this time. Patients may have clear liquids (water, carbonated beverages, clear teas, apple juice) until 3 hours prior to surgery with a maximum of 20 ounces. - No food from midnight until time of surgery and no smoking, or chewing tobacco (or any form of nicotine). No chewing gum, candy or mints. Take only the following medications with a SIP of water on the morning of surgery: __Levothyroxine DO NOT STOP ANY OF YOUR OTHER PRESCRIPTION MEDICATIONS PRIOR TO SURGERY EXCEPT THE FOLLOWING Hold all vitamins and supplements for 3 days per anesthesiologist. Medications to discontinue per physician Date to take last dzvl____[id number]___ Please no make-up, nail mongolian, hairspray, perfume, deodorant, or body powder the day of surgery.? No jewelry (including any body piercings) or valuables the day of surgery, leave them at home.? Please take a shower or bath the night before, or the morning of, surgery with an antibacterial soap.? Wear comfortable, loose fitting clothing.? - Jewelry must be removed prior to entering the operating room.? Rings and piercings that are not removed may be cut off. - The hospital will not accept responsibility for valuables.? - Please leave all valuables, including medications, at home the day of surgery. If you are going home after surgery, a licensed lease purchase truck driver must drive you home.? - NO public transportation without another adult if you receive anesthesia. - We recommend that an adult stay with you for 24 hours following discharge. - We also recommend that you do not drive, make important decision, drink alcoholic beverages, or take any drugs that were not prescribed by your health care provider for at least 24 hours after your discharge time. Follow any additional instructions given to you from your surgeon. Telephone instructions given to __Janet___and asked if any additional questions and then verbalized understanding. Patient advised to call surgeon office or pre surgery nurse liaison [phone] if any additional questions.
[2024-05-23] VITALS (13 sets, daily range): BP systolic 107–124; BP diastolic 59–81; PULSE 60–115; RESP 11–20; TEMP 36.2; O2SAT 93–100; BMI 24.0
--- OUTSIDE RECORDS SUMMARY | 2024-05-23 00:30 | XMS_ITS | Encounter Summary ---
Author Organization [facility] Address [address] [place] [address] Care Team Providers Care Iv Rn Name Role Phone Kristen Xiong NP Primary Care Provider [phone] Encounter Details Date Type Department Care Team (Late Contact Info) Description 12/14/2016 Orders Only [facility] [address] [place] [phone] Nadia Welch, BLOCKING MACHINE OPERATOR SECOND [address] [place], [place] [address] Social History Tobacco Use Types Packs/Day Years Used Date Smoking Tobacco: Never Smokeless Tobacco: Never Alcohol Use Standard Drinks/Week Comments No 0 (1 standard drink = 0.6 oz pur e alcohol) rarely Comments Unknown Sex and Gender Information Value Date Recorded Sex Assigned at Not on file Legal Sex Female 9:26 PM CDT Gender Identity Female 01/14/2021 8:12 AM CLIENT ACCOUNT REPRESENTATIVE Sexual Orientation Not on file documented as of this encounter Plan of Treatment Upcoming Encounters Date Type Department Care Team (Late Contact Info) Description 06/06/2024 3:30 PM CDT Appointment [facility] Breast Center [facility] [address] [facility] [address] [address] documented as of this encounter Visit Diagnoses Not on filedocumented in this encounter Additional Health Concerns Infection Onset Date Last Indicated Resolved Time PreProcedure Screening COVID-19 08/24/2020 1 08/25/2020 12:34 PM CDT PreProcedure Screening COVID-19 03/30/2021 2 03/30/2021 2:57 PM CLIENT ACCOUNT REPRESENTATIVE documented as of this encounter Care Teams Iv Rn Relationship Specialty Start Date End Date Kristen Xiong NP [address] [place] [address] PCP - General Nurse Practitioner 05/11/22 documented as of this encounter
--- OUTSIDE RECORDS SUMMARY | 2024-05-23 00:30 | XMS_ITS | Encounter Summary ---
Author Organization [facility] Address [address] [place] [address] Care Team Providers Care Cisco Engineer Name Role Phone Tyrese Kristen BELLO Primary Care Provider [phone] Encounter Details Date Type Department Care Team (Late st Contact Info) Description 03/14/2022 Prep for Case [facility] Medical Group Plastic and Reconstructive Surgery [address] [place] [phone] Josette Gtz MD [address] [place] [address] Fat necrosis (Primary Dx); Painful [...] CDT Gender Identity Female 01/14/2021 8:12 AM SUPERVISOR PULLET FARM Sexual Orientation Not on file documented as of this encounter Plan of Treatment Upcoming Encounters Date Type Department Care Team (Late st Contact Info) Description 06/06/2024 3:30 PM CDT Appointment [facility] Breast Center [facility] [address] [facility] [address] [address] documented as of this encounter Visit Diagnoses Diagnosis 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
--- OUTSIDE RECORDS SUMMARY | 2024-05-23 00:30 | XMS_ITS | Encounter Summary ---
Author Organization [facility] Address [address] [place] [address] Care Team Providers Care Timber Deadener Name Role Phone Kristen Xiong NP Primary Care Provider [phone] Encounter Details Date Type Department Care Team (Late Contact Info) Description 05/04/2023 Orders Only [facility] Medical Group Family Medicine [address] [place] [phone] Kristen Xiong NP [address] [place] [address] Primary insomnia Social History Tobacco [...] CDT Gender Identity Female 01/14/2021 8:12 AM RENEWALS SPECIALIST Sexual Orientation Not on file documented as of this encounter Plan of Treatment Upcoming Encounters Date Type Department Care Team (Late Contact Info) Description 06/06/2024 3:30 PM CDT [facility]ment [facility] [address] [phone] documented as of this encounter Visit Diagnoses Diagnosis Primary insomnia Persistent disorder of initiating or maintaining sleep documented in this encounter Care Teams Timber Deadener Relationship Specialty Start Date End Date Kristen Xiong NP [address] [place] [place] [address] PCP - General Nurse Practitioner 05/11/22 documented as of this encounter
--- OUTSIDE RECORDS SUMMARY | 2024-05-23 00:30 | XMS_ITS | Encounter Summary ---
Author Organization [facility] Address [facility] [place] [address] Care Team Providers Care Press Box Custodian Name Role Phone Kristen hughes EUGENIA Primary Care Provider [phone] Encounter Details Date Type Department Care Team (Late Contact Info) Description 12/05/2023 Orders Only [address] [phone] Mindy Pinon RN Social History Tobacco Use [...] CDT Gender Identity Female 01/14/2021 8:12 AM PIECE DYEING MACHINE TENDER Sexual Orientation Not on file documented as of this encounter Plan of Treatment Upcoming Encounters Date Type Department Care Team (Late Contact Info) Description 06/06/2024 3:30 PM CDT Appointment [facility] [address] [phone] documented as of this encounter Visit Diagnoses Not on filedocumented in this encounter Care Teams Press Box Custodian Relationship Specialty Start Date End Date Kristen Xiong NP [address] [place] [address] PCP - General Nurse Practitioner 05/11/22 documented as of this encounter
--- OUTSIDE RECORDS SUMMARY | 2024-05-23 00:30 | XMS_ITS | Encounter Summary ---
Author Organization [facility] Address [address] [place] [address] Care Team Providers Care Burning Plant Operator Name Role Phone Kristen Xiong NP Primary Care Provider [phone] Encounter Details Date Type Department Care Team (Late Contact Info) Description 10/26/2017 Orders Only [facility] [address] [place] [address] Nadia Welch, SUPERVISOR PLASTIC SHEETS [address] [place], [place] [address] Social History Tobacco Use Types Packs/Day Years Used Date Smoking Tobacco: Never Smokeless Tobacco: Never Alcohol Use Standard Drinks/Week Comments No 0 (1 standard drink = 0.6 oz pur e alcohol) rarely Comments Unknown Sex and Gender Information Value Date Recorded Sex Assigned at Not on file Legal Sex Female 9:26 PM CDT Gender Identity Female 01/14/2021 8:12 AM TECHNICIAN AUTOMATED EQUIPMENT Sexual Orientation Not on file documented as of this encounter Plan of Treatment Upcoming Encounters Date Type Department Care Team (Late Contact Info) Description 06/06/2024 3:30 PM CDT Appointment [facility] Breast Center [facility] [address] [facility] [address] [address] documented as of this encounter Visit Diagnoses Not on filedocumented in this encounter Additional Health Concerns Infection Onset Date Last Indicated Resolved Time PreProcedure Screening COVID-19 08/24/2020 1 08/25/2020 12:34 PM CDT PreProcedure Screening COVID-19 03/30/2021 2 03/30/2021 2:57 PM TECHNICIAN AUTOMATED EQUIPMENT documented as of this encounter Care Teams Burning Plant Operator Relationship Specialty Start Date End Date Kristen Xiong NP [address] [place] [address] PCP - General Nurse Practitioner 05/11/22 documented as of this encounter
--- OUTSIDE RECORDS SUMMARY | 2024-05-23 00:30 | XMS_ITS | Encounter Summary ---
Author Organization [facility] Address [address] [place] [address] Care Team Providers Care General Practice Name Role Phone Kristen Xiong NP Primary Care Provider [phone] Encounter Details Date Type Department Care Team (Late Contact Info) Description 03/14/2022 Prep for Case [facility] Plastic and Reconstructive Surgery [address] [place] [phone] Josette Gtz MD [address] [place] [address] Social History Tobacco Use Types Packs/Day Years Used Date Smoking Tobacco: Never Smokeless Tobacco: Never Alcohol Use Standard Drinks/Week Comments No 0 (1 standard drink = 0.6 oz pur e alcohol) rarely Comments No Sex and Gender Information Value Date Recorded Sex Assigned at Not on file Legal Sex Female 9:26 PM CDT Gender Identity Female 01/14/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 Sexual Orientation Not on file documented as of this encounter Plan of Treatment Upcoming Encounters Date Type Department Care Team (Late Contact Info) Description 06/06/2024 3:30 PM CDT Appointment [facility] Breast Center [facility] [address] [address] documented as of this encounter Visit Diagnoses Not on filedocumented in this encounter Care Teams General Practice Relationship Specialty Start Date End Date Kristen Xiong NP [address] [place] [address] PCP - General Nurse Practitioner 05/11/22 documented as of this encounter
--- OUTSIDE RECORDS SUMMARY | 2024-05-23 00:30 | XMS_ITS | Continuity of Care Document ---
Author Organization [employer] [facility] [employer] [facility] Address [address] [place] [address] Phone Care Team Providers Care Dental Laboratory Technology Teacher Name Role Phone Portia Muñiz NP Unavailable [...] route every day 50 MG - Active Vale Thyroid 120 mg tablet take 1 Tablet [...] Procedures Procedure Date MED LIST DOCD IN [facility] OFFICE/OUTPATIENT VISIT, NEW Advance Directives Directive Yes / No Effective Date File Name No Information Encounters Encounter Description Practice Location Reason(s) For Visit Diagnoses Date Provider Providers Copied on Encounter Resident Research [facility], [address], [place], [place], [id number], [place] tel:[phone] [facility] No Information Antonino Pearce. [address] [place], [address], [place]. tel:[phone] [facility], [address], [place], [place], [id number], tel:[phone] [facility] No Information 0 2 Antonino Pearce. [address] [place], [address], . tel:[phone] OFFICE/OUTPA TIENT VISIT, [facility], [address], [place], [place], [id number], tel:[phone] [facility] establish care (chief complaint) hypothyroi dism (chief complaint) thyroid problems (chief complaint) Body mass index (BMI) 26.0-26.9, adultHypothyroidism due to Leo's thyroiditisAutoimmun e thyroiditisOther iron deficiency anemiaHyperglycemiaH ypoglycemiaInsulin resistanceLow vitamin B12 levelVitamin D deficiencyHistory of gastric bypass 2 Antonino Pearce. [address] [place], [address], . [phone] Referring Provider: Portia White, [address] [place], [address]. tel:[phone] Family History Family Member Type Diagnosis Age At Onset Problem Family history of Cardiovasc ular disease Problem Family history of Thyroid di sorder Problem Family history of Diabetes cristal reyes Payers Payer name Insurance type Covered constitution party ID Popeye bacalesvia(s) [facility] [id number] Social History Type Description Quantity Date Captured Comments Sex Female Smoking Status No Information Chief Complaint And Reason For Visit No Information Reason For Referral Reason For Referral No Information Plan Of Treatment Date Type Action Status Goal Lifestyle education regardin g diet completed Future Order: Lab Order COMPREHE NSIVE METABOLIC PANEL ([id number]), Ordered on: Ordered Future Order: Lab Order CBC (INC LUDES DIFF/PLT) ([id number]), Ordered on: Ordered Future Order: Lab Order VITAMIN D,25-OH,TOTAL,IA ([id number]), Ordered on: Ordered Future Order: Lab Order VITAMIN B12 ([id number]), Ordered on: Ordered Future Order: Lab Order T4, FREE (866), O rdered on: Ordered Future Order: Lab Order T3, FREE ([id number]), Ordered on: Ordered Future Order: Lab Order TSH, 3RD GENERATION (119), Ordered on: Ordered Future Order: Lab Order HEMOGLOB IN A1C ([id number]), Ordered on: Ordered Future Order: Lab Order IRON, TI BC AND FERRITIN PANEL ([id number]), Ordered on: Ordered Future Order: Lab Order THYROID PEROXIDASE AND THYROGLOBULIN ANTIBODIES ([id number]), Ordered on: Ordered History Of Present Illness [...]
--- OUTSIDE RECORDS SUMMARY | 2024-05-23 00:30 | XMS_ITS | Encounter Summary ---
Author Organization [facility] Address [address] [place] [address] Care Team Providers Care Lock Setter Name Role Phone January hughesfany EUGENIA Primary Care Provider [phone] Encounter Details Date Type Department Care Team ([facility] Contact Info) Description 08/31/2016 Orders Only [facility] Medical Group Family Medicine [address] [place] [address] Bob Hu, RENALDO Social History Tobacco Use Types Packs/Day Years Used Date Smoking Tobacco: Never Smokeless Tobacco: Never Alcohol Use Standard Drinks/Week Comments No 0 (1 standard drink = 0.6 oz pur e alcohol) rarely Comments Unknown Sex and Gender Information Value Date Recorded Sex Assigned at Not on file Legal Sex Female 9:26 PM CDT Gender Identity Female 01/14/2021 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 Sexual Orientation Not on file documented as of this encounter Plan of Treatment Upcoming Encounters Date Type Department Care Team ([facility] Contact Info) Description 06/06/2024 3:30 PM CDT Appointment [facility] Breast Center [facility] [address] [address] documented as of this encounter Visit Diagnoses Not on filedocumented in this encounter Additional Health Concerns Infection Onset Date Last Indicated Resolved Time PreProcedure Screening COVID-19 08/24/2020 08/25/2020 12:34 PM CDT PreProcedure Screening COVID-19 03/30/2021 2 03/30/2021 2:57 PM NEON TUBE PUMPER documented as of this encounter Care Teams Lock Setter Relationship Specialty Start Date End Date Kristen Xiong NP [address] [place] [address] PCP - General Nurse Practitioner 05/11/22 documented as of this encounter
--- OUTSIDE RECORDS SUMMARY | 2024-05-23 00:30 | XMS_ITS | Encounter Summary ---
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 Sexual Orientation Not on file documented as of this encounter Plan of Treatment Upcoming Encounters Date Type Department Care Team (Late Contact Info) Description 06/06/2024 3:30 PM CDT Appointment [facility] Breast Center [facility] [address] [facility] [address] [address] Scheduled Orders Name Type Priority [...] Screening COVID-19 03/30/2021 2 03/30/2021 2:57 PM DRIVING INSTRUCTOR documented as of this encounter Care Teams Talent Development Consultant Relationship Specialty Start Date End Date Kristen Xiong NP [address] [place] [id number] PCP - General Nurse Practitioner 05/11/22 documented as of this encounter
--- OUTSIDE RECORDS SUMMARY | 2024-05-23 00:30 | XMS_ITS | Clinical Summary ---
Author Organization [facility] Address Count includes the [facility] [place] [address] Care Team Providers Care Salesperson Household Appliances Name Role Phone Tyrese Kristen EUGENIA Primary Care Provider [phone] Allergies Active Allergy Reactions Criticality Noted Date [...] as needed for anaphylaxis 08/15/19 12 Active zwvfzquy-corr-UU -calcium-mins (THERAGRAN M) 9 mg iron-400 mcg [...] (07/07/2017): Added automatically from request for surgery [id number] Vitamin D deficiency 12/13/2012 Esophageal reflux 10/31/2012 Iron deficiency anemia 10/17/2012 Hypoglycemia 02/06/2010 Hypopotassemia 02/06/2010 Hypothyroidism History of blood transfusion Overview (09/01/2016): x 4 d/t anemia Anemia Resolved Problems Problem Noted Date Diagnosed Date Resolved Date Hyperlipidemia 03/18/2021 05/18/2021 Hiatal hernia 10/16/2019 05/18/2021 Palpitations 02/06/2010 05/18/2021 Encounters Date Type Department Care Team Description 03/20/2024 Telephone [facility] Medical Group Family Medicine [address] [place] [address] Kristen Xiong NP from Last [...] CDT Gender Identity Female 01/14/2021 8: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 Sexual Orientation Not on file Last Filed Vital Signs Vital Sign Reading Time Taken Comments Blood Pressure 107/68 12/27/2023 11:30 AM SUBWAY TRAIN OPERATOR Pulse 78 12/27/2023 11:30 AM SUBWAY TRAIN OPERATOR Temperature 36.7 C (98.1 F) 12/27/2023 8:26 AM SUBWAY TRAIN OPERATOR Respiratory Rate 18 12/27/2023 11:30 AM SUBWAY TRAIN OPERATOR Oxygen Saturation 100% 12/27/2023 11:30 AM SUBWAY TRAIN OPERATOR Inhaled Oxygen Concentration - - Weight 79.4 kg (175 lb) 09/08/2023 12:48 PM CDT Height 157.5 cm (5' 2 ) 09/08/2023 12:48 PM CDT Body Mass Index 32.01 09/08/2023 12:48 PM CDT Plan of Treatment Upcoming Encounters Date Type Department Care Team (Late st Contact Info) Description 06/06/2024 3:30 PM CDT Appointment [facility] [address] [address] Health Maintenance Due Date Last [...] Vaccines Discontinued Medical Devices Implanted Type Area Soil Expert Device Identifier Shelf Expiration Date Model / Serial / Lot Breast Breast Natrelle Inspira Softtouch Breast Implant Smooth Round Extra-Full Profile Implanted:Qty: 1 on 04/01/2021 by Josette Gtz MD at [facility] PLASTIC SURGERY OR Breast Right: Breast [employer] 07/28/2024 SSX / [id number] / [id number] Natrelle Inspira Softtouch Breast Implant Smooth Round Extra-Full Profile Implanted:Qty: 1 on 04/01/2021 by Josette Gtz MD at [facility] PLASTIC SURGERY OR Breast Left: Breast [employer] 05/30/2023 SSX / [id number] / [id number] Procedures Procedure Name Priority Date/Time Associated Diagnosis [...] Relevant to Health Maintenance Insurance [place] [employer] [facility] PL[facility] Advance Directives For more information, please contact: [phone] * Full Code (Latest Code Status on File) Date Activated Date Inactivated Comments 05/11/2022 11:18 AM 05/11/2022 6:47 PM * Full Code Date Activated Date Inactivated Comments 07/18/2017 8:22 AM 07/18/2017 3:07 PM Care Teams Salesperson Household Appliances Relationship Specialty Start Date End Date Kristen Xiong NP [address] [place] [address] PCP - General Nurse Practitioner 05/11/22
--- OUTSIDE RECORDS SUMMARY | 2024-05-23 00:30 | XMS_ITS | Continuity of Care Document ---
Author Organization [facility] Address [address] [place] [address] Phone Care Team Providers Care Matchbook Assembler Name Role Phone Prosper Howard PA-C Unavailable Unavailable Allergies, Adverse Reactions, Alerts Substance Reaction Status Criticality BEE STING KIT Active No Information Penicillins Active No Information morphine Active No Information codeine Active No Information Medications Medication Instructions Dosage Effective Dates (start - stop) Status Comments [place] Thyroid 90 mg tablet take 1 tablet [...] Copied on Encounter Office/outpat ient visit,est, mod [facility], [address] [place] [address], [id number], tel:[phone] [facility] knee (chief complaint) Pain in right kneeUnilateral primary osteoarthritis, right knee 0 Lee Cheng. [address] [place] [address], [id number] , . tel:[phone] Referring Provider: Tracy Lal, [address], [place], [address] . tel:[phone] Office/outpat ient visit,[facility], [facility], [address] [place] [address], [id number], tel:[phone] [facility] knee (chief complaint) Pain in right kneePrimary osteoarthritis of right knee 9 Matteo Boggs. [address] [place] [address], [id number] , . tel:[phone] Referring Provider: Tracy Lal, [address], [place], [address] . tel:[phone] Office/outpat ient visit,[facility], [facility], [address] [place] [address], [id number], tel:[phone] [facility] ankle (chief complaint) knee (chief complaint) Sprain of left ankle, unspecified ligament, initial encounterAcute left ankle painPrimary osteoarthritis of both knees 8 Vijay Lin. [address] [place] [address], [id number] , . tel:[phone] Referring Provider: Tracy Lal, [address], [place], [address] . tel:[phone] Family History Family Member Type Diagnosis Age At Onset Problem (finding) Family history of Cardi ovascular disease Problem (finding) Family history of Diabe yoan mellitus Immunizations Vaccine Date Status Comments Pneumo (2 yrs or older)(PPV) administered Source: Other Provider Flu (split) (3 yrs or older) administered Source: Other Provider Payers Payer name Insurance type Covered libertarian ID Authorbreea usman(s) [employer] Through 20 [id number] Social History Type Description Quantity Date Captured [...] Radiology Order Kn ee Xray 3 Views ([id number]), Ordered on: Ordered Future Order: Radiology Order Kn ee Xray 1 Or 2 Views ([id number]), Ordered on: Ordered Future Order: Radiology Order Kn ee Xray Both Knees Standing AP ([id number]), Ordered on: Ordered History Of Present Illness [...]
--- OUTSIDE RECORDS SUMMARY | 2024-05-23 00:30 | XMS_ITS | Encounter Summary ---
Author Organization [facility] Address [facility] [place] [address] Care Team Providers Care Compounding Technician Name Role Phone Kristen Xiong NP Primary Care Provider [phone] Encounter Details Date Type Department Care Team (Late Contact Info) Description 02/18/2022 Orders Only [facility] Family Medicine [address] [place] [phone] Kristen Xiong NP [address] [place] [address] Social History Tobacco Use Types Packs/Day Years Used Date Smoking Tobacco: Never Smokeless Tobacco: Never Alcohol Use Standard Drinks/Week Comments No 0 (1 standard drink = 0.6 oz pur e alcohol) rarely Comments No Sex and Gender Information Value Date Recorded Sex Assigned at Not on file Legal Sex Female 9:26 PM CDT Gender Identity Female 01/14/2021 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
--- NOTE | 2024-05-23 10:13 | WPDANESEPPF ---
Anes - Initial Pre Proc Eval Procedure: Operation Date: 05/23/24 12:00 Proposed Procedures p Bilateral Medial Thigh Lift - Carlos Kimball MD Date/Time: 05/23/24 10:13 Surgeon: Carlos Kimball MD Pre Op Diagnosis: skin laxity Patient Data Age: 53 Gender: F Height: 1.59 m Weight: 60.5 kg Last Vital Signs Temp 36.2 C L 05/23/24 09:54 Pulse 60 05/23/24 09:54 Resp 14 05/23/24 09:54 BP 115/68 05/23/24 09:54 Pulse Ox 100 05/23/24 09:54 O2 Del Method Room Air 05/23/24 09:54 Allergies Allergy/AdvReac Type Severity Reaction Status Date / Time codeine Allergy Severe Swelling Verified 05/23/24 09:53 of Lip/Tongue/Throat morphine Allergy Severe Swelling Verified 05/23/24 09:51 of Lip/Tongue/Throat Penicillins Allergy Severe Swelling Verified 05/23/24 09:51 of Lip/Tongue/Throat shellfish derived Allergy Severe Swelling Verified 05/23/24 09:51 of Lip/Tongue/Throat venom-honey bee Allergy Severe Swelling Verified 05/23/24 09:51 of Lip/Tongue/Throat Home Medications ?Medication ?Instructions ?Recorded ?Confirmed ?Type ascorbic acid (vitamin C) 500 mg 500 mg PO DAILY 05/13/24 05/23/24 History chewable tablet (Acerola C) cholecalciferol (vitamin D3) 25 1,000 unit PO DAILY 05/13/24 05/23/24 History mcg (1,000 unit) capsule (Vitamin D3) ferrous sulfate 325 mg (65 mg 325 mg PO DAILY 05/13/24 05/23/24 History iron) tablet (Feosol) levothyroxine 100 mcg capsule 100 mcg PO DAILY 05/13/24 05/23/24 History (Tirosint) multivitamin (Daily Multi-Vitamin 1 tablet PO DAILY 05/13/24 05/23/24 History tablet) Laboratory Tests 05/23/24 10:01 Cotinine Pending Patient hx anesthesia problems: none Family hx anesthesia problems: none Results Review: All pre-operative results and documents have been reviewed as part of the pre-operative evaluation. [facility] Past Medical History Medical History (Updated 05/23/24 @ 10:13 by Dino Diamond MD) Hypothyroidism Social History Social History Smoking status: Never smoker Alcohol intake: current Living arrangements: with family Spiritual care concerns: No Anes - Eval Final PreProcedure Day of Procedure 05/23/24 10:13 Patient weight: normal Heart: regular rate and rhythm Lungs: clear to auscultation Airway: Mallampati scale class II Neurological: alert and oriented Last oral intake: >/= 8 hours ASA classification: II Emergent: no Anesthetic plan: proceed Anesthesia type and monitoring: general LMA and standard monitoring Results Review: All pre-operative results and documents have been reviewed as part of the pre-operative evaluation. Informed Consent: The patient's anesthetic plan and its attendant risks and benefits were discussed with the patient/family/POA. Questions were solicited and answers provided to the satisfaction of the patient/family/POA.
[2024-05-23 10:15] LABS: Urine Cotinine NEGATIVE
[2024-05-23] MEDS: LACTATED RINGERS 1,000 ML 30 ML IV CONT ×2 (10:30→14:47)
[2024-05-23] MEDS: TRANEXAMIC ACID 1,000MG/ISO100 1,000 MG/100 ML BAG 200 MG IVPB (10:49)
--- NOTE | 2024-05-23 11:20 | WPDHPUPDATE1 ---
History and Physical Update Update Date/Time: 05/23/24 11:20 History and Physical has been reviewed, including an updated exam of the patient. There are NO changes in the patient's condition. Risks, benefits, and alternatives have been discussed and questions answered. Patient agrees to proceed with procedure.
--- NOTE | 2024-05-23 11:31 | W.PM.PROC2 ---
Procedure Note - Detailed Date of Procedure 05/23/24 Pre-op Diagnosis skin laxity Post-op Diagnosis Same Procedure Performed Bilateral medial thigh lift Surgeon Carlos Kimball MD Anesthesia General Findings Lipoaspirate: 2,650 Description of Procedure Here for the above procedures. Preoperatively risks, benefits, alternatives were discussed again today in extensive detail. I want to be very realistic about the risks involved as well as expectations. Made sure answered all of their questions to satisfaction. They voiced a clear understanding. Consent obtained. Patient was marked in the preoperative holding area with their verification. Taken to the operating placed supine on the operating table. Anesthesia was provided by anesthesiology. Prepped and draped in a standard sterile fashion. Surgical time-out was taken. Stab incisions were made and I tumesced with a tumescent solution. Once adequate time for hemostasis suction lipectomy was with a 4 mm basket cannula based on S.A.F.E. technique. This was completed based on preoperative planning, intraoperative observation, and rolling pinch test which was in full agreement. I completely de-fatted the planned resection area and a strip avulsion technique was completed. Starting proximal to distal a 10 blade was used to excise the intervening skin and this was tacked as we proceed to ensure good closure. This was closed using a 2-0 Quill, 3-0 strata fix, running subcuticular 4-0 Monocryl, and tissue glue. Dressings were placed. Tolerated the procedure well. Taken to the PACU without difficulty. All instrument sponge counts were correct at the end of the case. Estimated Blood Loss 50 Drains No Packing No Pathology None sent Complications No immediate complications Condition Stable Disposition PACU
[2024-05-23] MEDS: ceFAZolin 2 GM/D5W 50 ML 2 GM/50 ML BAG IVPB (11:38)
[2024-05-23] MEDS: LACTATED RINGERS IRRIG 1,000 ML, LIDOCAINE 1% LOCAL INJ 50 ML, EPINEPHrine HCL INJ 1 MG... INFILTRATE (12:36)
[2024-05-23] MEDS: fentaNYL CITRATE INJ (*CRX) 100 MCG/2 ML VIAL 25 MCG IV PUSH ×8 (15:26→16:05)
[2024-05-23] MEDS: HYDROcodone/acetaminophen (*CRX) 5-325 MG TABLET 1 TAB PO (17:08)
== END 2024-05-23 17:55 | disposition home or self-care (01) ==
PROVIDERS: Visit Provider Surgery Plastic and Reconstructive Surgery
PROC: (CPT 15832; principal; 2024-05-23 12:00)
DX: Z41.1 Encounter for cosmetic surgery (principal); L57.4 Cutis laxa senilis; E03.9 Hypothyroidism, unspecified; Z98.890 Other specified postprocedural states; Z98.84 Bariatric surgery status
CPT/HCPCS: 15832; 15879; 80307; A9270; J0171; J0690; J1100; J2003; J2250; J2371; J2405; J2704; J3010; J7120